=== PATIENT | female | born 1980 | race Two or more races ===

== ENCOUNTER 2023-01-18 19:10 | Inpatient (IN) | payer BC ==
[2023-01-18] MEDS ORDERED: Piperacillin/Tazobactam 3.375 GM VIAL ONE (20:13)
[2023-01-18] MEDS ORDERED: Acetaminophen 500 MG TAB ONE (20:13)
[2023-01-18] MEDS ORDERED: fentaNYL 50 mcg/mL 1 mL Vial ONE (20:15)
[2023-01-18 20:16] LABS: #Eosinphils 0.2 thou/uL (0.0-0.7); #Lymphocytes 0.8 thou/uL (1.20-3.40); #Monocytes 0.8 thou/uL (0.11-0.59); #Neutrophils 10.7 thou/uL (1.40-6.50); %Basophils 0.1 % (0.0-1.0); %Eosinophils 1.3 % (0.0-10.0); %Lymphocytes 6.2 % (21.0-51.0); %Monocytes 6.4 % (0.0-10.0); %Neutrophils 85.9 % (42.0-75.0); Hemoglobin 9.4 g/dL (12.0-16.0); Mean Corpuscular HGB CONC 31.2 g/dL (32.0-36.0); Mean Corpuscular Hemoglobin 20.4 pg (27.0-31.0); Mean Corpuscular Volume 65.5 fl (78.0-98.0); Mean Platelet Volume 9.2 fL (7.4-10.4); Platelet Count 168 10x3/uL (130-400); RBC Distribution Width 16.4 % (11.5-14.5); White Blood Cell (WBC) Count 12.5 10x3/uL (4.8-10.8)
[2023-01-18] MEDS ORDERED: Ondansetron PF 4 MG/2 ML Vial ONE ×2 (20:19→22:37)
[2023-01-18 20:21] LABS: BHCG - Serum Negative (NEGATIVE); Pregs Control Background? CLEAR/WHITE (CLR/WHITE); Pregs Control Bar Appear? YES (CONTROL BAR)
[2023-01-18 20:28] LABS: Hypochromia SLIGHT = 6-15 cells (100X) (0-5/hpf); MDiff Complete? YES; Microcytosis SLIGHT = 6-15 cells (100X) (0-5/hpf); Ovalocytes SLIGHT = 2-5 cells (100X) (0-1/hpf); Platelet Morphology Comment Appears Adequate; Polychromasia SLIGHT = 2-3 cells (100X) (0-2/hpf)
[2023-01-18 20:42] LABS: ALT (SGPT) 14 U/L (8-55); AST (SGOT) 15 U/L (5-34); Alkaline Phosphatase 66 U/L (40-110); Anion Gap 13 mmol/L (10-20); BUN (Urea Nitrogen) 9 mg/dL (7.0-18.7); Bilirubin, Total 0.5 mg/dL (0.2-1.2); Calc. Creatinine Clearance 0 mL/min (70-130); Calcium 9.5 mg/dL (7.8-10.44); Carbon Dioxide 23 mmol/L (22-29); Chloride 102 mmol/L (98-107); Estimated GFR 93; Globulin 3.1 g/dL (2.4-3.5); Glucose 122 mg/dL (70-105); Lipase 18 U/L (8-78); Potassium 3.6 mmol/L (3.5-5.1); Protein, Total 7.1 g/dL (6.0-8.3); Sodium 134 mmol/L (136-145)
[2023-01-18] MEDS ORDERED: Pantoprazole 40 MG VIAL ONE ×2 (21:25→21:26)
[2023-01-18 21:34] LABS: INR-International Normal Ratio 1.1; PTT 32.2 sec (22.9-36.1); Prothrombin Time 14.4 sec (12.0-14.7)
[2023-01-18] MEDS ORDERED: Pantoprazole 80 MG, Admixture Fee 1 EACH in Sodium Chloride 0.9% 100 ML IVPB SCH (21:45)
[2023-01-18] MEDS ORDERED: fentaNYL PF 100 MCG/2 ML SYRINGE ONE (21:46)
[2023-01-18] MEDS ORDERED: Dexmedetomidine 200 MCG/2 ML VIAL ONE (21:46)
[2023-01-18] MEDS ORDERED: HYDROmorphone 0.5 MG/0.5 ML SYRINGE ONE (21:46)
[2023-01-18] MEDS ORDERED: Ketorolac Tromethamine 30 MG/ML VIAL ONE (22:37)
[2023-01-18] MEDS ORDERED: Dexamethasone 20 MG/5 ML VIAL ONE (22:37)
[2023-01-18] MEDS ORDERED: Rocuronium Bromide 10 MG/ML (10ML VIAL) ONE (22:37)
[2023-01-18] MEDS ORDERED: Metoclopramide HCl 10 MG/2 ML VIAL ONE (22:37)
[2023-01-18] MEDS ORDERED: Lidocaine 1% PF 5 ML VIAL ONE (22:37)
[2023-01-18] MEDS ORDERED: PROPOFOL 200 MG/20 ML VIAL ONE (22:37)
[2023-01-18] MEDS ORDERED: SUGAMMADEX SODIUM 200 MG/2 ML VIAL ONE (23:38)
[2023-01-18] MEDS ORDERED: diphenhydrAMINE 50 MG/ML VIAL IVP PRN (23:39)
[2023-01-19] MEDS ORDERED: HYDROmorphone 2 MG/ML VIAL SLOW IVP PRN (00:17)
[2023-01-19] MEDS ORDERED: Meperidine HCl/PF 25 MG/ML VIAL SLOW IVP PRN (00:17)
[2023-01-19] MEDS ORDERED: Ondansetron HCl/PF 4 MG/2 ML Vial IVP PRN (00:17)
[2023-01-19] MEDS ORDERED: Promethazine HCl 25 MG/ML VIAL IM PRN (00:17)
[2023-01-19] MEDS ORDERED: fentaNYL 50 mcg/mL 1 mL Vial ONE ×3 (00:24→00:51)
[2023-01-19] MEDS ORDERED: Ondansetron PF 4 MG/2 ML Vial IVP PRN (02:17)
[2023-01-19] MEDS: Morphine 4 MG/ML VIAL SLOW IVP PRN ×5 (02:24→20:32)
[2023-01-19] MEDS: Piperacillin/Tazobactam 3.375 GM in Sodium Chloride 0.9% 100 ML IVPB SCH ×3 (02:36→18:50)
[2023-01-19 04:02] VITALS: BMI 44.2
[2023-01-19 07:03] LABS: #Lymphocytes 0.6 thou/uL (1.20-3.40); #Monocytes 0.2 thou/uL (0.11-0.59); #Neutrophils 12.1 thou/uL (1.40-6.50); %Eosinophils 0.1 % (0.0-10.0); %Lymphocytes 4.7 % (21.0-51.0); %Monocytes 1.9 % (0.0-10.0); %Neutrophils 93.4 % (42.0-75.0); Hemoglobin 8.8 g/dL (12.0-16.0); Mean Corpuscular HGB CONC 30.7 g/dL (32.0-36.0); Mean Corpuscular Hemoglobin 20.4 pg (27.0-31.0); Mean Corpuscular Volume 66.3 fl (78.0-98.0); Mean Platelet Volume 9.2 fL (7.4-10.4); Platelet Count 161 10x3/uL (130-400); RBC Distribution Width 16.4 % (11.5-14.5); White Blood Cell (WBC) Count 12.9 10x3/uL (4.8-10.8)
[2023-01-19 07:26] LABS: Anion Gap 12 mmol/L (10-20); BUN (Urea Nitrogen) 12 mg/dL (7.0-18.7); Calc. Creatinine Clearance 155 mL/min (70-130); Calcium 8.1 mg/dL (7.8-10.44); Carbon Dioxide 21 mmol/L (22-29); Chloride 106 mmol/L (98-107); Estimated GFR 92; Glucose 160 mg/dL (70-105); Potassium 4.2 mmol/L (3.5-5.1); Sodium 135 mmol/L (136-145)
[2023-01-19] MEDS: Pantoprazole 40 MG VIAL IVP SCH ×2 (08:08→20:34)
[2023-01-19 08:29] LABS: Band 5 % (5-11); Hypochromia MODERATE=16-30 cells (100X) (0-5/hpf); Lymphocytes 2 % (21-51); MDiff Complete? YES; Microcytosis MARKED = >30 cells (100X) (0-5/hpf); Neutrophil 93 % (42-75); Ovalocytes SLIGHT = 2-5 cells (100X) (0-1/hpf); Platelet Morphology Comment Appears Adequate; Polychromasia SLIGHT = 2-3 cells (100X) (0-2/hpf)
[2023-01-19] MEDS: Lactated Ringer's 1,000 ML IV SCH ×2 (08:45→12:49)
[2023-01-19] MEDS: Lidocaine 4% Patch TD SCH (16:53)
[2023-01-19] MEDS: Ondansetron PF 4 MG/2 ML Vial IVP PRN (20:32)
[2023-01-19] MEDS: Acetaminophen 650 MG Suppository PR PRN (22:56)
[2023-01-20] MEDS: Piperacillin/Tazobactam 3.375 GM in Sodium Chloride 0.9% 100 ML IVPB SCH ×3 (02:13→18:29)
[2023-01-20] MEDS: Lactated Ringer's 1,000 ML IV SCH ×2 (02:13→07:15)
[2023-01-20] MEDS: Transdermal Patch Removal TOP SCH (04:09)
[2023-01-20] MEDS: Ondansetron PF 4 MG/2 ML Vial IVP PRN ×2 (05:07→21:06)
[2023-01-20] MEDS: Morphine 4 MG/ML VIAL SLOW IVP PRN ×4 (05:07→21:04)
[2023-01-20 06:20] LABS: Anion Gap 11 mmol/L (10-20); BUN (Urea Nitrogen) 15 mg/dL (7.0-18.7); Calc. Creatinine Clearance 176 mL/min (70-130); Calcium 8.1 mg/dL (7.8-10.44); Carbon Dioxide 23 mmol/L (22-29); Chloride 107 mmol/L (98-107); Estimated GFR 107; Glucose 101 mg/dL (70-105); Magnesium 2.2 mg/dL (1.6-2.6); Phosphorus 2.3 mg/dL (2.3-4.7); Potassium 3.4 mmol/L (3.5-5.1); Sodium 138 mmol/L (136-145)
[2023-01-20 06:45] LABS: #Lymphocytes 1.3 thou/uL (1.20-3.40); #Monocytes 0.4 thou/uL (0.11-0.59); #Neutrophils 5.8 thou/uL (1.40-6.50); %Basophils 0.2 % (0.0-1.0); %Eosinophils 0.4 % (0.0-10.0); %Lymphocytes 17.3 % (21.0-51.0); %Monocytes 5.5 % (0.0-10.0); %Neutrophils 76.6 % (42.0-75.0); Hemoglobin 8.1 g/dL (12.0-16.0); Hypochromia SLIGHT = 6-15 cells (100X) (0-5/hpf); Large Platelets SLIGHT; MDiff Complete? YES; Mean Corpuscular HGB CONC 31.2 g/dL (32.0-36.0); Mean Corpuscular Hemoglobin 20.7 pg (27.0-31.0); Mean Corpuscular Volume 66.4 fl (78.0-98.0); Mean Platelet Volume 9.9 fL (7.4-10.4); Microcytosis MODERATE=15-30 cells (100X) (0-5/hpf); Ovalocytes SLIGHT = 2-5 cells (100X) (0-1/hpf); Platelet Count 158 10x3/uL (130-400); Platelet Morphology Comment Appears Adequate; Polychromasia SLIGHT = 2-3 cells (100X) (0-2/hpf); RBC Distribution Width 16.3 % (11.5-14.5); Red Blood Cell (RBC) Count 3.88 mill/uL (4.20-5.40); White Blood Cell (WBC) Count 7.6 10x3/uL (4.8-10.8)
[2023-01-20] MEDS: Pantoprazole 40 MG VIAL IVP SCH ×2 (08:44→21:03)
[2023-01-20] MEDS ORDERED: Potassium Phosphate 30 MMOL in Sodium Chloride 0.9% 250 ML 250 ML IVPB SCH (09:00)
[2023-01-20] MEDS: 1/2 NS w/KCL 20 mEq 1,000 ML IV SCH ×2 (11:47→21:05)
[2023-01-20] MEDS: Lidocaine 4% Patch TD SCH (15:22)
[2023-01-21] MEDS: Piperacillin/Tazobactam 3.375 GM in Sodium Chloride 0.9% 100 ML IVPB SCH ×2 (03:21→09:17)
[2023-01-21] MEDS: 1/2 NS w/KCL 20 mEq 1,000 ML IV SCH ×2 (03:21→17:11)
[2023-01-21] MEDS: Acetaminophen 650 MG Suppository PR PRN (04:15)
[2023-01-21] MEDS: Transdermal Patch Removal TOP SCH (04:39)
[2023-01-21] MEDS: Ondansetron PF 4 MG/2 ML Vial IVP PRN (09:07)
[2023-01-21] MEDS: Pantoprazole 40 MG VIAL IVP SCH ×2 (09:07→20:10)
[2023-01-21] MEDS ORDERED: traMADol HCl 50 MG TAB PO PRN (11:43)
[2023-01-21] MEDS: Acetaminophen 325 MG TAB PO SCH ×3 (12:25→23:04)
[2023-01-21] MEDS: metroNIDAZOLE 500 MG TAB PO SCH ×2 (15:58→20:09)
[2023-01-21] MEDS: Lidocaine 4% Patch TD SCH ×2 (16:50→22:47)
[2023-01-21] MEDS: Ciprofloxacin 500 MG TAB PO SCH (20:09)
[2023-01-22] MEDS: Ciprofloxacin 500 MG TAB PO SCH ×2 (05:43→20:41)
[2023-01-22] MEDS: Acetaminophen 325 MG TAB PO SCH ×4 (05:43→23:26)
[2023-01-22] MEDS: Pantoprazole 40 MG VIAL IVP SCH ×2 (09:33→20:42)
[2023-01-22] MEDS: metroNIDAZOLE 500 MG TAB PO SCH ×3 (09:33→20:41)
[2023-01-22] MEDS: Transdermal Patch Removal TOP SCH (13:11)
[2023-01-22] MEDS: Lidocaine 4% Patch TD SCH (16:02)
[2023-01-23] MEDS: Transdermal Patch Removal TOP SCH (04:06)
[2023-01-23] MEDS: Ondansetron PF 4 MG/2 ML Vial IVP PRN ×2 (04:26→09:16)
[2023-01-23] MEDS: Acetaminophen 325 MG TAB PO SCH ×2 (05:35→12:13)
[2023-01-23] MEDS: Ciprofloxacin 500 MG TAB PO SCH (05:37)
[2023-01-23] MEDS: Pantoprazole 40 MG VIAL IVP SCH (09:16)
[2023-01-23] MEDS: metroNIDAZOLE 500 MG TAB PO SCH ×2 (09:16→16:14)
[2023-01-23] MEDS ORDERED: Metoclopramide HCl 10 MG/2 ML VIAL IVP SCH (11:00)
[2023-01-23] MEDS ORDERED: Sodium Chloride 0.9% 750 ML IV SCH (11:00)
[2023-01-23 15:54] VITALS: BP 154/95; TEMP 98.2
[2023-01-23] MEDS: Lidocaine 4% Patch TD SCH (16:15)
== END 2023-01-23 18:10 | disposition home or self-care (01) | DRG 330 ==
LOC: ERS 19:10 → SDC/OP 22:12 → SURG A 23:39
PROVIDERS: ADMIT Surgery; ATTEND Surgery
PROC: 0DU907Z Supplement Duodenum with Autologous Tissue Substitute, Open Approach (ICD-10-PCS; principal; 2023-01-18)
DX: K26.5 Chronic or unspecified duodenal ulcer with perforation (principal); Z68.41 Body mass index [BMI] 40.0-44.9, adult; G43.909 Migraine, unspecified, not intractable, without status migrainosus; D64.9 Anemia, unspecified; Z20.822 Contact with and (suspected) exposure to COVID-19; E66.9 Obesity, unspecified; Z90.49 Acquired absence of other specified parts of digestive tract; Z79.899 Other long term (current) drug therapy
CPT/HCPCS: 36415; 74177; 74246; 80048; 80053; 83605; 83690; 83735; 84100; 84703; 85025; 85610; 85730; 86850; 86900; 86901; 87040; 93005; 96365; 96366; 96375; C9113; J1100; J1170; J1200; J1650; J1885; J2270; J2405; J2543; J2704; J2765; J3010; J3480; J3490; J7030; J7050; J7120; U0003; U0005

== ENCOUNTER 2024-03-08 06:16 | Day surgery (SDC) | payer BC ==
[2024-03-07 13:40] VITALS: BMI 46.6
[2024-03-08] MEDS ORDERED: Lidocaine 1% PF 5 ML VIAL ONE ×2 (07:13→08:57)
[2024-03-08] MEDS ORDERED: PROPOFOL 60 ML ONE (07:13)
[2024-03-08] MEDS ORDERED: GLYCOPYRROLATE/PF 0.2 MG/ML VIAL ONE ×2 (07:20→08:57)
[2024-03-08] MEDS ORDERED: PHENYLEPHRINE-NS 100 MCG/ML 10 ML SYRINGE ONE (07:20)
[2024-03-08] MEDS ORDERED: PROPOFOL 20 ML ONE (08:59)
== END 2024-03-08 11:00 | disposition home or self-care (01) ==
LOC: SDC 06:16
PROVIDERS: ATTEND Internal Medicine
PROC: 0DJ08ZZ Inspection of Upper Intestinal Tract, Via Natural or Artificial Opening Endoscopic (ICD-10-PCS; principal; 2024-03-08)
PROC: 0DBL8ZZ Excision of Transverse Colon, Via Natural or Artificial Opening Endoscopic (ICD-10-PCS; principal; 2024-03-08)
DX: D12.3 Benign neoplasm of transverse colon (principal); K64.4 Residual hemorrhoidal skin tags; K64.8 Other hemorrhoids; K26.9 Duodenal ulcer, unspecified as acute or chronic, without hemorrhage or perforation; Z87.19 Personal history of other diseases of the digestive system; D50.9 Iron deficiency anemia, unspecified; D64.9 Anemia, unspecified; G47.30 Sleep apnea, unspecified; Z90.49 Acquired absence of other specified parts of digestive tract; Z98.890 Other specified postprocedural states; Z79.899 Other long term (current) drug therapy
CPT/HCPCS: 88305; J2704; J3490